=== PATIENT | male | born 1955 | race Caucasian/White ===

== ENCOUNTER 2023-05-06 13:59 | Outpatient (CLI) | payer OTHER, SELFPAY ==
--- NOTE | 2023-05-06 14:13 | XR_ITS ---
WS: [id number] DEXA (DUAL ENERGY X-RAY ABSORPTIOMETRY) Bone mineral density was performed using a expressor software machine. HISTORY: OSTEO FOLLOW UP COMPARISON: None available. Lumbar spine BMD (L1-L4): 1.043 g/cm2 T score: -1.5 Z score: -0.9 Total hip BMD: Left: 0.764 g/cm2. T score: -2.3 Z score: -1.6 Right: 0.749 g/cm2. T score: -2.4 Z score: -1.7 10 year probability of a major osteoporotic fracture is 11.7%. XR/XR DEXA axial skeleton* [id number] IMPRESSION: OSTEOPENIA.
== END 2023-05-06 14:00 | disposition home or self-care (01) ==
PROVIDERS: PCP Family Medicine; Visit Provider Family Medicine
DX: Z13.820 Encounter for screening for osteoporosis (principal); M85.80 Other specified disorders of bone density and structure, unspecified site
CPT/HCPCS: 77080

== ENCOUNTER 2023-06-23 08:31 | Outpatient (CLI) | payer OTHER, SELFPAY ==
--- NOTE | 2023-06-23 08:39 | CT_ITS ---
WS: [id number] CTA ABDOMINAL AORTA WITH RUNOFF TECHNIQUE: Contrast enhanced CTA of the abdominal aorta with bilateral lower extremity runoff. Multip lanar reformatted images were obtained. MIP reformats were also reviewed. CLINICAL INFORMATION: PAD COMPARISON: None. DLP: 963.[address] scans at [facility] use at least one of these dose optimization techniques: automated e xposure control; mA and/or kV adjustment per patient size (includes targeted exams where dose is matc hed to clinical indication); or iterative reconstruction. FINDINGS: Normal caliber distal abdominal aorta. Aortic calcification. Normal variant left-sided IVC. RIGHT renal cyst measuring 4.6 x 4.0 cm partially visualized. Tiny fat-containing umbilical hernia. Enlarged prostate with evidence of bladder outlet obstruction. Recommend correlation PSA. RIGHT: Densely calcified RIGHT common iliac artery which remains patent. Densely calcified internal i liac artery. External iliac artery is patent. Approximately 50% stenosis RIGHT common femoral artery with dense calcification. Severe stenosis at the superficial femoral artery origin. Deep femoral navin ry is patent. Segmental high-grade narrowing superficial femoral artery in the proximal thigh. Superf icial femoral artery is occluded in the mid thigh near the adductor hiatus. Reconstitution of the pop liteal artery with multifocal severe stenosis and segments of occlusion. Popliteal artery reconstitut es above the knee in the popliteal fossa. Popliteal artery remains patent to the trifurcation with th ree-vessel runoff to the ankle. LEFT: LEFT common iliac artery is patent with dense calcification. Internal iliac artery is densely c alcified but patent. External iliac artery is patent. Common femoral artery is patent with approximat isamar 50% stenosis in the groin. SFA is nearly occluded at the origin with high-grade stenosis. Deep fe moral artery is patent. Multifocal moderate to severe stenosis in the proximal SFA. SFA remains paten t to the adductor hiatus. Popliteal artery is patent. Popliteal artery remains patent to the trifurca tion. Three-vessel runoff to the ankle. IMPRESSION: 1. Normal caliber distal abdominal aorta. Aortic calcification. Normal variant left-sided IVC. 2. RIGHT: Severe stenosis at the SFA origin with occlusion of the SFA in the mid thigh just proximal to the adductor hiatus. Flow in the proximal popliteal artery with multifocal occlusion and severe s tenosis proximally. Popliteal artery reconstitutes above the knee and is patent in the popliteal daisy a with three-vessel runoff to the ankle. 3. LEFT: High-grade stenosis LEFT proximal SFA with near occlusion at the origin. Small SFA remains patent to the adductor hiatus. Popliteal artery is patent. Three-vessel runoff to the ankle. 4. Partially visualized RIGHT renal cyst measuring 4.6 x 4.0 cm. 5. Enlarged prostate measuring 4.6 cm. Recommend correlation PSA.
[2023-06-23] MEDS: iohexol 350 mg/mL 500 mL Btl (per mL) IV (08:43)
== END 2023-06-23 08:32 | disposition home or self-care (01) ==
LOC: RAD 08:34
PROVIDERS: PCP Family Medicine; Visit Provider Family Medicine
DX: I70.203 Unspecified atherosclerosis of native arteries of extremities, bilateral legs (principal); N28.1 Cyst of kidney, acquired; N40.0 Benign prostatic hyperplasia without lower urinary tract symptoms
CPT/HCPCS: 73706; Q9967

== ENCOUNTER → 2023-07-05 08:01 | Outpatient (BNVA) | payer OTHER, SELFPAY | PROVIDERS: PCP Family Medicine; Visit Provider Student in an Organized Health Care Education/Training Program | DX: M23.307 Other meniscus derangements, unspecified meniscus, left knee; M17.12 Unilateral primary osteoarthritis, left knee | CPT/HCPCS: 73560; 73565; 99203 ==

== ENCOUNTER 2023-07-28 07:01 | Outpatient (CLI) | payer OTHER, SELFPAY ==
--- NOTE | 2023-07-28 07:15 | MR_ITS ---
WS: [id number] MRI LEFT KNEE NONCONTRAST TECHNIQUE: Axial PD, coronal PD fat sat, coronal PD, sagittal PD, and sagittal PD fat-sat images obta ined. CLINICAL INFORMATION: left knee pain, rule out meniscus tear COMPARISON: None. FINDINGS: Distal quadriceps and patella tendons are intact. Hypertrophic patella. Normal ACL and PCL. Prepatell ar soft tissue edema. Chronic thinning of the medial and lateral meniscus. No acute appearing menisca l tears. Mild chondromalacia patella. Normal medial and lateral collateral ligaments. Normal poplitea l fossa. Moderate to advanced chondromalacia medial greater than lateral joint compartments. Chronic thinning of the meniscus. Subchondral cystic change with edema involving the anterior medial tibial plateau wi th osteochondral lesion measuring 8 mm. IMPRESSION: 1. ACL and PCL are intact. 2. Chronic thinning of the medial and lateral meniscus. No acute appearing meniscal tears. 3. 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 4. Osteochondral lesion involving the anterior medial tibial plateau measuring 8 mm with edema. 5. Hypertrophic patella. Moderate chondromalacia patella. 6. Small joint effusion. Outbridge grading: grade III: partial-thickness cartilage loss with focal ulceration
== END 2023-07-28 07:02 | disposition home or self-care (01) ==
PROVIDERS: PCP Family Medicine; Visit Provider Student in an Organized Health Care Education/Training Program
DX: M25.562 Pain in left knee (principal); M22.42 Chondromalacia patellae, left knee; M89.9 Disorder of bone, unspecified; M23.304 Other meniscus derangements, unspecified medial meniscus, left knee
CPT/HCPCS: 73721

== ENCOUNTER → 2023-09-13 13:26 | Outpatient (BNVA) | payer OTHER, SELFPAY | PROVIDERS: PCP Family Medicine; Referring Provider Family Medicine; Visit Provider Internal Medicine | DX: R07.9 Chest pain, unspecified (principal); R58 Hemorrhage, not elsewhere classified; I73.9 Peripheral vascular disease, unspecified; I25.10 Atherosclerotic heart disease of native coronary artery without angina pectoris; R94.31 Abnormal electrocardiogram [ECG] [EKG] | CPT/HCPCS: 93005; 99204 ==

== ENCOUNTER → 2023-09-15 11:26 | Outpatient (BNVA) | payer OTHER, SELFPAY | PROVIDERS: PCP Family Medicine; Visit Provider Student in an Organized Health Care Education/Training Program | DX: M25.551 Pain in right hip (principal); M16.11 Unilateral primary osteoarthritis, right hip; M87.051 Idiopathic aseptic necrosis of right femur | CPT/HCPCS: 73502; 99214 ==

== ENCOUNTER 2023-09-28 11:25 | Observation (INO) | payer OTHER, SELFPAY ==
[2023-09-28] VITALS (8 sets, daily range): BP systolic 96–149; BP diastolic 61–88; PULSE 63–79; RESP 16–21; TEMP 36.4–37.2; O2SAT 94–99; BMI 23.6
--- NOTE | 2023-09-28 07:30 | XACV_ITS ---
Ht: 178 cm Wt: 75 kg BSA: 1.93 m2 Any Known Allergies: Other Gender: Male : 1955 Exam Type: Invasive Peripheral Vascular Procedure(s): Procedure Description: Peripheral Cath Diagnostic Procedure Procedure Description: Abdominal aortic angiography Procedure Description: Lower extremities' angiography Procedure Description: Peripheral vascular Intervention Procedure Description: PV Balloon Procedure Description: PV Atherectomy Exam Priority: Routine Abdominal Diagnostic Findings Distal abdominal aorta:Patent. Lower Extremity Diagnostic Findings Indication: Severe bilateral lifestyle limiting claudication. Patient refused cilostazol as says has anemia history and is concerned about it. Given significant limitation of his functional capacity, he had CTA showing severe PAD. Plan for peripheral angiogram. Right lower extremity findings: Right common iliac artery has mild 20 to 30% stenosis. Right external iliac artery is patent. Right common femoral artery is patent. Right profunda artery is patent. Right SFA has critical ostial to proximal stenosis which is very heavily calcified. In mid segment, the vessel is totally occluded. Reconstitutes via collaterals in distal SFA/ popliteal artery. Right popliteal artery is patent. Below the knee patient has three-vessel runoff with patent posterior tibial, anterior tibial and peroneal arteries. However below the knee vessels have very slow flow. Left lower extremity findings: Left common iliac artery is patent. Left external iliac artery is patent. Left internal iliac artery is patent. Left common femoral artery has significant calcification. Distally the vessel has 40 to 50% stenosis. Left profunda artery is patent. Left SFA is has diffuse 40 to 50% disease. Left popliteal artery is patent. Below the knee patient has three-vessel runoff with patent posterior tibial, anterior tibial and peroneal arteries. Right Mid-longitudinal Superficial Femoral Artery: 100% stenosis. Lower Extremity Interventional Findings Right Mid-longitudinal Superficial Femoral Artery: 100% stenosis treated with AB [place] 35 CREDIT CONTROL ASSISTANT Catheter [id number] and DCB Lutonix 7.0 X 60mm. Procedure detail: After diagnostic angiography, we switched short 6 German sheath from the left common femoral artery to a 45 cm long sheath and went up and over to the right external iliac artery. Initially we used a Glidewire and seeker support catheter to attempt to cross the totally occluded mid SFA. However it was going into the collateral. We then used Dario-cross support catheter and Glidewire to cross the totally occluded segment and was put in distal vessel.We then switched the glidewire to viper wire through support catheter. We then performed several runs of orbital arthrectomy. This was followed by balloon angioplasty of proximal to distal SFA with [id number] [place] balloon. We then performed balloon angioplasty of ostial to proximal SFA with 7.0x60mm Lutonix drug coated balloon. At this time final angiogram was performed that showed excellent flow in the right SFA. Sheath was switched to short sheath. Patient left the pathology laboratory aides teacher in a stable condition. . Conclusions There is severe right lower extremity disease with total occlusion of mid SFA s/p successful revascularization with orbital arthrectomy and balloon angioplasty. Right Mid-longitudinal Superficial Femoral Artery was treated with two Balloon. Recommendations Dual antiplatelet therapy with aspirin and plavix for atleast 3 months. Outpatient cardiology follow up in 4 weeks. Hemodynamic Data Phase:Rest AO : 153.0 / 68.0 ( 98.0 ) @ 9:38:00 AM 124.0 / 68.0 ( 91.0 ) @ 9:49:00 AM 163.0 / 79.0 ( 111.0 ) @ 10:51:00 AM Access Site Site: Left Femoral artery Sheath Size: 6 Fr Hemost... Method: Suture Hemost... Success: Successful Procedure Details Findings Procedure Consent Obtained. Pre-Procedure Time Out. Identified patient by full name and date of as verbalized by the patient/guarantor. Does the consent match the physician's order: No. Accurate & Complete Informed Consent: Yes. Inpatient/Outpatient History & Physical on Chart: Yes. If H&P is completed, is and addenduem needed: No; If yes, is the addendum complete: N/A. Visualize and Verify Site with Patient/Guarantor: N/A. Relevant Radiology Images available: No. The risks, benefits, and alternatives of sedation and/or procedure were discussed by physician. The patient agrees to continue. Procedure started. Current diagnosis: PAD, Lifestyle limiting claudication. PERRLA. Strong, equal hand accounting lecturer bilaterally. Lungs clear x 5 lobes. IV Site on Arrival: 20 gauge in the right anticubital. IV Fluids: 0.9% NaCl at 75mlhr. 0 mL infused prior to pathology laboratory aides teacher. Pre Procedural Pulses: bilateral radial was 3+. Pre Procedural Pulses: bilateral posterior tibial was Doppled. Pre Procedural Pulses: right dorsalis pedis was Doppled. Pre Procedural Pulses: left dorsalis pedis was 3+. Oxygen started at 2liters/min via nasal canula. bilateral groins was prepped with chloroprep then draped in the usual sterile fashion. Baseline sample Acquired. HR: 71 BPM. Physician notified. Physician arrived. Physician scrubbed in. Immediate Pre-Procedure Time Out. Correct Patient: Yes; Correct Procedure: Yes; Correct Site: Yes; Correct Patient Position: Yes; Correct Supplies: Yes; Dried Flammable Prep: Yes; Blood Products Available: No;. Admit Source: Out Patient. Lidocaine 1% infiltrated to the left groin. Arterial access obtained with micropuncture set. 5Fr UF catheter in over wire. Abdominal Aortogram performed in AP @ 10 mL/second for a total of 30 mL. Glidewire in through UF catheter. Uf catheter repositioned. Glidewire out. Right common iliac selected and arteriogram performed. DSA imaging performed below the right knee to better visualize the distal vessels. Glidewire in through UF catheter. UF catheter out over glidewire. 6fr short sheath exchanged for 6fr 45cm flexor sheath over the glidewire. Seeker catheter inserted over the glidewire. Side port of sheath attached to Normal Saline flush at KVO to maintain patency. Mutiple attempts made to advance glidewire across mid SFA. Unable to cross mid SFA with glidewire. Glidewire out. 300cm command wire in through seeker catheter, seated in SFA. Seeker catheter out over wire. Dario- cross catheter in over command wire. Command wire out. Glidewire advanced through Dario-cross catheter. Multiple attempts to advance glidewire. Unable to cross. Glidewire out. Hand injection through Dario-cross catheter. Dario-cross catheter advanced over glidewire to popliteal. Glidewire out. Hand injection through Dario-cross catheter. DSA imaging performed below the knee to better visualize distal vessels. 0.14 peripheral viper guidewire in through catheter. Dario-cross catheter out over viperwire. 1.5mm orbital atherectomy device advanced over viperwire. atherectomy performed to proximal right SFA. atherectomy device repositioned, atherectomy performed to right mid SFA. atherectomy performed to right mid to distal SFA. Atherectomy device out over viperwire. seeker catheter in over viperwire. Viperwire out. Glidewire in through seeker catheter. Seeker catheter out over glidewire. Balloon in over glidewire, advanced to distal common femoral and proximal SFA. Inflation number : 1 A AB [place] 35 CREDIT CONTROL ASSISTANT Catheter [id number] was prepped and advanced across the Superficial Femoral, Right , then inflated to 6 RODRIGUEZ for 1:29 seconds. Balloon repositioned to mid to distal SFA. Inflation number: 2 The AB [place] 35 CREDIT CONTROL ASSISTANT Catheter [id number] was reinflated across the Superficial Femoral, Right, to 0 RODRIGUEZ for 1:27 seconds. Balloon out over glidwire. Right common femoral selected and arteriogram performed, checking results. Balloon inserted over the wire to the proximal superficial femoral. Inflation number : 3 A DCB Lutonix 7.0 X 60mm was prepped and advanced across the Superficial Femoral, Right , then inflated to 5 RODRIGUEZ for 1:30 seconds. Inflation number: 4 The DCB Lutonix 7.0 X 60mm was reinflated across the Superficial Femoral, Right, to 6 RODRIGUEZ for 0:32 seconds. Balloon out over wire. Right common femoral selected and arteriogram performed, checking results. 6fr 45cm flexor sheath exchanged for 6fr short sheath over glidewire. Glidewire out. Sheath injected in Left common femoral artery and runoff performed. ACT drawn. Results 282 seconds. Therapeutic limits - pre-heparin administration 90-150 seconds and monitoring heparin during a vascular procedure >250 seconds. A Suture was successful obtaining hemostatsis at the Left Femoral artery insertion site. Sheath(s) sutured into position with 2-0 silk and sterile 4x4's and Op-site applied over the site. No oozing or signs and symptoms of hematoma noted. Arterial sheath flushed and connected to tranducer and pressure bag with heparinized saline. Post Procedure: Pulses reassessed and unchanged. PERRLA. Strong, equal hand accounting lecturer bilaterally. No VTE prophylaxis required. Medication's Wasted: Nitro = 49.7 mg. Medication's Wasted: Other = Fentanyl 50mcg, Versed 1 mg. Medication's Wasted: Heparin = 2000 units. Total IV fluids: 110 mL. Post-op diagnosis: Severe right lower extremity PAD . Successful revascularization status post atherectomy and balloon angioplasty. Complications: None. Estimated blood loss: 5mL-10mL. Responsiveness - Normal response to verbal stimuli; alert and oriented, PERRLA. Airway - Unaffected, no intervention required; spontaneous ventilation. Circulation: W/N/L, pulses unchanged. Nausea/Vomiting: No. Procedure completed. Patient transferred by bed to 1st floor. Vital chart was stopped. Procedure Medications Start: 9:29 AM Stop: 9:29 AM Medication: Versed Amount: 1 mg Route: I.V. Start: 9:30 AM Stop: 9:30 AM Medication: Fentanyl Amount: 50 mcg Route: I.V. Start: 9:36 AM Stop: 9:36 AM Medication: Versed Amount: 1 mg Route: I.V. Start: 9:44 AM Stop: 9:44 AM Medication: Heparin Amount: 5000 units Route: I.V. Start: 9:45 AM Stop: 9:45 AM Medication: Fentanyl Amount: 25 mcg Route: I.V. Start: 9:56 AM Stop: 9:56 AM Medication: Fentanyl Amount: 25 mcg Route: I.V. Start: 10:05 AM Stop: 10:05 AM Medication: Versed 1 mg and Fentanyl 25 mcg Route: I.V. Start: 10:18 AM Stop: 10:18 AM Medication: Heparin Amount: 1000 units Route: I.V. Start: 10:29 AM Stop: 10:29 AM Medication: Fentanyl Amount: 25 mcg Route: I.V. Start: 10:35 AM Stop: 10:35 AM Medication: Nitrogylcerin Amount: 300 mcg Route: I.A. Start: 10:55 AM Stop: 10:55 AM Medication: Plavix Amount: 600 mg Route: P.O. I, the attending physician, have reviewed and verified all procedure medications. Yes, all medications given per verbal order History/Risk Factors Hypertension: No Dyslipidemia: Yes Peripheral Arterial Disease (PAD): Yes Myocardial Infarction ([place]): Yes Obesity: No Prior Interventions PCI: Yes CABG: No Valve Surgery: No Report Signatures Finalized by Suraj Partida MD on 10/03/2023 12:50 PM
[2023-09-28] MEDS: aspirin 325 mg Tablet PO (07:40)
[2023-09-28] MEDS: diphenhydrAMINE 50 mg Capsule PO (07:40)
[2023-09-28 07:53] LABS: Basophils % 0.5 %; Eosinophils # 0.2 10^3/uL (0.0-0.8); Eosinophils % 2.2 %; Lymphocytes # 1.8 10^3/uL (0.8-4.8); Lymphocytes % 24.7 %; Mean Corpuscular HGB Conc 33.8 g/dL (30-55); Mean Corpuscular Hemoglobin 32.3 pg (27-33); Mean Corpuscular Volume 95.8 fl (82-101); Mean Platelet Volume 8.8 fL (7.4-10.4); Monocytes # 0.6 10^3/uL (0.2-0.9); Monocytes % 8.6 %; Neutrophils # 4.68 10^3/uL (1.8-7.7); Neutrophils % 63.7 %; Nucleated Red Blood Cells % 0 %; Platelet Count 263 10^3/cmm (157-399); Red Blood Count 5.01 10^6/uL (3.85-5.65); Red Cell Distribution Width 12.9 % (12.1-15.1); White Blood Count 7.34 10^3/uL (3.29-11.43)
[2023-09-28 08:11] LABS: Blood Urea Nitrogen 18 mg/dL (8-23); Calcium 9.7 mg/dL (8.5-10.5); Carbon Dioxide 29 mmol/L (22-29); Chloride 102 mmol/L (98-107); Glomerular Filtration Rate 95.8 mL/min (90-130); Glucose 92 mg/dL (65-115); Osmolality Calculated 290 mOsm/kg (285-295); Sodium 139 mmol/L (136-145)
--- NOTE | 2023-09-28 09:26 | W.PM.OPSUD ---
Surgery/Procedure H&P Update DATE OF PROCEDURE: September 28, 2023 DATE H&P PERFORMED: 09/13/23 H&P UPDATE INFORMATION: I have reviewed H&P completed within last 30 days, I have examined patient prior to procedure and No changes to prior documentation PREOP DIAGNOSIS: Severe bilateral lifestyle limiting claudication PRIMARY INDICATION FOR PROCEDURE: Severe bilateral lifestyle limiting claudication PLANNED PROCEDURE: Operation Date: 09/28/23 08:30 Proposed Procedures p Periph Angiogram 15936,I73.9(Not Applicable) - Suraj Partida M.D Possible percutaneous peripheral intervention PATIENT REASSESSED PRIOR TO SEDATION, WITH NO CHANGE NOTED: Yes PHYSICAL EXAM: alert, oriented x 3, clear to auscultation bilaterally and regular rate & rhythm AIRWAY EVAL/ANESTHESIA PLAN: normal airway, ASA III, Local Anesthesia, Risks, benefits & alternatives of sedation and/or procedure discussed and Patient agrees to continue as planned ADDITIONAL INFORMATION: Moderate sedation
--- NOTE | 2023-09-28 12:30 | PC.NURSE ---
Dr Partida at bedside due to report of hematoma applied pressure to left groin and per verbal order from dr partida to hold pressure 10 mins.
--- NOTE | 2023-09-28 13:10 | PC.NURSE ---
patient started to bleed again on right groin upon using his urinal. hematoma came came and another pressure held for 15 mins. pt denies any pain on back or left groin. reported only of soreness upon palpation around the sheath area.
[2023-09-28 13:48] LABS: Partial Thromboplastin Time 91.2 SECONDS (23.9-36.7)
[2023-09-28 15:36] LABS: Partial Thromboplastin Time 32.1 SECONDS (23.9-36.7)
[2023-09-28] MEDS: amlodipine 5 mg Tablet PO (18:49)
[2023-09-28] MEDS: temazepam 15 mg Capsule PO (20:10)
[2023-09-28] MEDS: alum-mag-hydroxide-sime 30 mL UDC PO (22:35)
[2023-09-29 03:10] VITALS: BP 120/76; PULSE 78; RESP 24; TEMP 36.9; O2SAT 94
[2023-09-29 06:13] LABS: Basophils % 0.4 %; Eosinophils # 0.2 10^3/uL (0.0-0.8); Eosinophils % 1.4 %; Hematocrit 48.4 % (37-53); Lymphocytes # 1.7 10^3/uL (0.8-4.8); Lymphocytes % 14.9 %; Mean Corpuscular HGB Conc 33.1 g/dL (30-55); Mean Corpuscular Hemoglobin 32.1 pg (27-33); Mean Platelet Volume 9.1 fL (7.4-10.4); Monocytes % 8.8 %; Neutrophils # 8.39 10^3/uL (1.8-7.7); Neutrophils % 74.2 %; Nucleated Red Blood Cells % 0 %; Platelet Count 253 10^3/cmm (157-399); Red Blood Count 4.99 10^6/uL (3.85-5.65); White Blood Count 11.31 10^3/uL (3.29-11.43)
[2023-09-29 06:36] LABS: Anion Gap 16.2 (5-19); Blood Urea Nitrogen 13 mg/dL (8-23); Calcium 9.4 mg/dL (8.5-10.5); Carbon Dioxide 24 mmol/L (22-29); Chloride 105 mmol/L (98-107); Glomerular Filtration Rate 95.6 mL/min (90-130); Glucose 100 mg/dL (65-115); Osmolality Calculated 292 mOsm/kg (285-295); Potassium 4.2 mmol/L (3.5-5.1); Sodium 141 mmol/L (136-145)
--- NOTE | 2023-09-29 07:14 | P.DS_ITS ---
Discharge Providers Date of Admission: 09/28/23 11:25 Date of Discharge: September 29, 2023 Attending Provider at Admission: Suraj Partida M.D Attending Provider at Discharge: Suraj Partida M.D Primary Care Provider: Corinne Sweet MD Reason for Visit Reason for Visit: Peripheral angiogram with peripheral intervention Brief History: 68-year-old man with past medical histor y of CAD who has been having lifestyle limiting claudication especially on right lower extremity here for peripheral angiogram with possible intervention. Hospital Course Hospital Course Peripheral angiogram demonstrated severe ostial to proximal SFA stenosis and total occlusion of mid SFA. He underwent successful revascularization with orbital arthrectomy and balloon angioplasty. Patient was observed overnight and stayed stable. He was discharged home on dual antiplatelet therapy Physical Exam Narrative: GENERAL: Patient is alert, awake and oriented x3. [] NECK: No jugular vein distension. [] HEENT: No cyanosis. No icterus. No pallor. [] HEART: Regular S1 and S2. No murmur, rub or gallop. [] LUNGS: Clear to auscultate bilaterally. [] CENTRAL NERVOUS SYSTEM: Grossly nonfocal. [] EXTREMITIES: Lower extremities with no edema bilaterally. Discharge Data Studies Completed and Pending Pending at discharge Category Date Time Status APPLICATIONS ANALYST request for service Routine Exams 09/28/23 07:30 Taken Laboratory Results WBC 11.31 10^3/uL (3.29-11.43) 09/29/23 05:30 RBC 4.99 10^6/uL (3.85-5.65) 09/29/23 05:30 Hgb 16.00 g/dL (11.27-16.99) 09/29/23 05:30 Hct 48.4 % (37-53) 09/29/23 05:30 MCV 97.0 fl (82-101) 09/29/23 05:30 MCH 32.1 pg (27-33) 09/29/23 05:30 MCHC 33.1 g/dL (30-55) 09/29/23 05:30 RDW 13.0 % (12.1-15.1) 09/29/23 05:30 Plt Count 253 10^3/cmm (157-399) 09/29/23 05:30 MPV 9.1 fL (7.4-10.4) 09/29/23 05:30 Neut % (Auto) 74.2 % 09/29/23 05:30 Lymph % (Auto) 14.9 % 09/29/23 05:30 [place]ven % (Auto) 8.8 % 09/29/23 05:30 Eos % (Auto) 1.4 % 09/29/23 05:30 Baso % (Auto) 0.4 % 09/29/23 05:30 Neut # (Auto) 8.39 10^3/uL (1.8-7.7) H 09/29/23 05:30 Lymph # (Auto) 1.7 10^3/uL (0.8-4.8) 09/29/23 05:30 Craven # (Auto) 1.0 10^3/uL (0.2-0.9) H 09/29/23 05:30 Eos # (Auto) 0.2 10^3/uL (0.0-0.8) 09/29/23 05:30 Baso # (Auto) 0.0 10^3/uL (0.0-0.1) 09/29/23 05:30 Nucleated RBC % (auto) 0 % 09/29/23 05:30 Nucleated RBCs # 0.0 /100WBC 09/29/23 05:30 APTT 32.1 SECONDS (23.9-36.7) D 09/28/23 15:11 Sodium 141 mmol/L (136-145) 09/29/23 05:30 Potassium 4.2 mmol/L (3.5-5.1) 09/29/23 05:30 Chloride 105 mmol/L (98-107) 09/29/23 05:30 Carbon Dioxide 24 mmol/L (22-29) 09/29/23 05:30 Anion Gap 16.2 (5-19) 09/29/23 05:30 BUN 13 mg/dL (8-23) 09/29/23 05:30 Creatinine 0.8 mg/dL (0.7-1.2) 09/29/23 05:30 GFR Calculation 95.6 mL/min (90-130) 09/29/23 05:30 Glucose 100 mg/dL (65-115) 09/29/23 05:30 Calculated Osmolality 292 mOsm/kg (285-295) 09/29/23 05:30 Calcium 9.4 mg/dL (8.5-10.5) 09/29/23 05:30 Vitals Last Vital Signs Temp 98.4 F 09/29/23 03:10 Pulse 78 09/29/23 03:10 Resp 24 H 09/29/23 03:10 BP 120/76 09/29/23 03:10 Pulse Ox 94 09/29/23 03:10 O2 Del Method Room Air 09/29/23 03:10 Discharge Plan Discharge Patient Disposition: Home Condition: Stable Prescriptions: New aspirin 81 mg tablet,delayed release (DR/EC) 81 mg PO DAILY Qty: 90 0RF clopidogrel 75 mg tablet 75 mg PO DAILY Qty: 90 0RF Continued rabeprazole 20 mg tablet,delayed release (DR/EC) 20 mg PO DAILY mirtazapine 30 mg tablet 30 mg PO DAILY clonidine HCl 0.3 mg tablet 0.3 mg PO BID coenzyme Q10 200 mg capsule 200 mg PO DAILY taurine 1,000 mg capsule 2 g PO DAILY magnesium L-threonate 48 mg magnesium (667 mg) capsule 2,000 mg PO DAILY cholecalciferol (vitamin D3) 250 mcg (10,000 unit) capsule 500 mcg PO DAILY vitamin K2 100 mcg capsule 200 mcg PO DAILY Vitamin B Complex 1 tab PO DAILY ascorbic acid (vitamin C) 1,000 mg capsule 1 g PO DAILY Held Nattokinase 50 mg capsule 50 mg PO DAILY Hold Instructions: Resume on 12/28/23. Discharge Orders: Discharge Order (Routine); Ordered 09/29/23 Ordered By: Suraj Partida Referrals: Suraj Partida M.D [Physician] - (Your Dr. Partida follow up appointment will be scheduled during your Daisy Romero appointment. Thank you.) Daisy Romero FNP [Nurse Practitioner] - 10/06/23 10:30 am Discharge Diet: Cardiac Discharge Activity: Increase activity as tolerated Patient Instructions: Aspirin (By mouth) (Meir Extra Strength, Meir Aspirin [facility],..., Clopidogrel (By mouth) (Plavix), Peripheral Vascular Stent Placement (DC), Peripheral Vascular Angioplasty (DC), Opioid Safety, Post Angiogram Home Care Instructions Discharge Attestations Time Spent in Discharge Care*: less than 30 min Quality Metrics Clinical Quality Measures [ No reported AMI, CVA or VTE this stay] Coding Level of Care Code Acute Code for Chg Fwd
[2023-09-29 07:55] VITALS: BP 120/76; PULSE 78; RESP 24; TEMP 36.9; O2SAT 94
== END 2023-09-29 08:20 | disposition home or self-care (01) ==
LOC: CSU 11:26
PROVIDERS: Admitting Provider Internal Medicine; PCP Family Medicine; Visit Provider Internal Medicine
DX: I70.201 Unspecified atherosclerosis of native arteries of extremities, right leg (principal); I25.10 Atherosclerotic heart disease of native coronary artery without angina pectoris; E78.5 Hyperlipidemia, unspecified; I25.2 Old myocardial infarction; Z87.891 Personal history of nicotine dependence
CPT/HCPCS: 36415; 37224; 37225; 75625; 75716; 80048; 85025; 85347; 85730; 96361; 96365; 99152; 99153; C1724; C1725; C1769; C1887; C1894; C2623; G0378; J1644; J2250; J3010; J3490; J7030; Q0163; Q9967

== ENCOUNTER → 2023-10-06 10:11 | Outpatient (BNVA) | payer OTHER, SELFPAY | PROVIDERS: PCP Family Medicine; Visit Provider Nurse Practitioner Family | DX: I73.9 Peripheral vascular disease, unspecified (principal); Z87.891 Personal history of nicotine dependence | CPT/HCPCS: 80048; 85610; 99214 ==

== ENCOUNTER → 2023-12-01 08:29 | Outpatient (BNVA) | payer OTHER, SELFPAY | PROVIDERS: PCP Family Medicine; Visit Provider Student in an Organized Health Care Education/Training Program | DX: M70.61 Trochanteric bursitis, right hip (principal); M16.11 Unilateral primary osteoarthritis, right hip; M87.051 Idiopathic aseptic necrosis of right femur | CPT/HCPCS: 20610; 99214; J3301; J3490 ==

== ENCOUNTER → 2023-12-05 15:27 | Outpatient (BNVA) | payer OTHER, SELFPAY | PROVIDERS: PCP Family Medicine; Visit Provider Internal Medicine | DX: I73.9 Peripheral vascular disease, unspecified (principal); I25.10 Atherosclerotic heart disease of native coronary artery without angina pectoris; Z87.891 Personal history of nicotine dependence | CPT/HCPCS: 99214 ==

== ENCOUNTER → 2024-03-01 08:42 | Outpatient (BNVA) | payer OTHER, SELFPAY | PROVIDERS: PCP Family Medicine; Visit Provider Student in an Organized Health Care Education/Training Program | DX: M16.11 Unilateral primary osteoarthritis, right hip; M70.61 Trochanteric bursitis, right hip | CPT/HCPCS: 99213 ==

== ENCOUNTER → 2024-05-18 08:45 | Outpatient (BNVA) | payer OTHER, SELFPAY | PROVIDERS: PCP Family Medicine; Visit Provider Student in an Organized Health Care Education/Training Program | DX: M87.051 Idiopathic aseptic necrosis of right femur (principal) | CPT/HCPCS: 20610; 77002; J3301 ==

== ENCOUNTER → 2024-08-23 10:14 | Outpatient (BNVA) | payer OTHER, SELFPAY | PROVIDERS: PCP Family Medicine; Visit Provider Student in an Organized Health Care Education/Training Program | DX: M16.11 Unilateral primary osteoarthritis, right hip; M70.61 Trochanteric bursitis, right hip | CPT/HCPCS: 99213 ==

== ENCOUNTER → 2024-09-10 13:57 | Outpatient (BNVA) | payer OTHER, SELFPAY | PROVIDERS: PCP Family Medicine; Visit Provider Internal Medicine | DX: I73.9 Peripheral vascular disease, unspecified (principal); I25.10 Atherosclerotic heart disease of native coronary artery without angina pectoris; Z87.891 Personal history of nicotine dependence | CPT/HCPCS: 99214 ==

== ENCOUNTER → 2024-09-28 09:35 | Outpatient (BNVA) | payer OTHER, SELFPAY | PROVIDERS: PCP Family Medicine; Visit Provider Student in an Organized Health Care Education/Training Program | DX: M70.61 Trochanteric bursitis, right hip (principal); M87.051 Idiopathic aseptic necrosis of right femur; M16.11 Unilateral primary osteoarthritis, right hip | CPT/HCPCS: 20610; 77002; J3301 ==

== ENCOUNTER 2024-10-05 09:59 | Outpatient (CLI) | payer OTHER, SELFPAY ==
[2024-10-05 10:52] LABS: Alanine Aminotransferase 20 U/L (0-41); Albumin Level 3.7 g/dL (3.5-5.2); Alkaline Phosphatase 56 U/L (40-130); Aspartate Amino Transferase 18 U/L (0-40); Globulin 2.6 g/dL (1.3-4.6); Total Bilirubin 0.2 mg/dL (0.15-1.2); Total Protein 6.3 g/dL (6.6-8.7)
== END 2024-10-05 10:00 | disposition home or self-care (01) ==
LOC: LAB 10:03
PROVIDERS: PCP Family Medicine; Visit Provider Nurse Practitioner Family
DX: R53.82 Chronic fatigue, unspecified (principal); F32.9 Major depressive disorder, single episode, unspecified
CPT/HCPCS: 36415; 80076

== ENCOUNTER 2024-10-09 07:30 | Outpatient (CLI) | payer OTHER, SELFPAY ==
--- NOTE | 2024-10-09 07:45 | USCV_ITS ---
Jean Pierre Turner Age: 69 Gender: M : 1955 Exam Date: 10/09/2024 07:46 Ordering Phys: Suraj Partida M.D ([email or web address]) Technologist: SUSAN Exam Location: [facility] – [place] Indication: CHEST PAIN/SHORTNESS OF BREATH BP: 117 / 72 HR: 75 Rhythm: Sinus Technical Quality: Adequate MEASUREMENTS (Male / Female) Normal Values 2D ECHO LV Diastolic Diameter PLAX 4.9 cm 4.2 - 5.9 / 3.9 - 5.3 cm IVS Diastolic Thickness 1.1 cm 0.6 - 1.0 / 0.6 - 0.9 cm IVS Systolic Thickness 1.2 cm LVPW Diastolic Thickness 1.7 cm 0.6 - 1.0 / 0.6 - 0.9 cm LVPW Systolic Thickness 2.3 cm LVOT Diameter 2.0 cm LV Ejection Fraction 2D Teich 34.2 % LV Ejection Fraction MOD 4C 51.7 % LV Ejection Fraction MOD 2C 49.3 % LV Ejection Fraction 2C AL 47.6 % LA Diameter 3.7 cm RA Systolic Volume 4C AL 25.0 ml RA Systolic Volume 4C MOD 23.9 ml LA Sys Volume AL 37.5 cm cubed LA Sys Volume Index AL 19.8 cm cubed/m squared Aorta at Sinotubular Diameter 3.0 cm IVC Diameter 1.2 cm M-MODE LA Ao Ratio MM 1.0 AV Cusp Separation MM 1.6 cm DOPPLER AV Peak Velocity 114.0 cm/s LVOT Peak Velocity 98.0 cm/s AV Area Cont Eq vti 3.0 cm squared AV Area Cont Eq pk 2.8 cm squared MV Peak Velocity 119.0 cm/s MV Area PHT 3.8 cm squared Mitral E to A Ratio 0.7 TR Peak Velocity 131.0 cm/s TR Peak Gradient 6.9 mmHg TR Mean Velocity 109.0 cm/s TR Mean Gradient 5.2 mmHg TR Velocity Time Integral 38.6 cm TV Peak E Velocity 47.0 cm/s PV Peak Velocity 104.0 cm/s RV Ejection Time 0.3 s FINDINGS Left Ventricle Left ventricle is normal in size. LV systolic function is normal with EF of 50 to 55%. No regional wall motion abnormalities. Grade 1 diastolic dysfunction. Right Ventricle Normal in size and function Right Atrium Normal in size Left Atrium Normal in size Mitral Valve Structurally normal mitral valve. Mild mitral regurgitation. Aortic Valve Structurally normal aortic valve. No significant stenosis or regurgitation. Tricuspid Valve Insufficient TR jet to calculate RVSP. Pulmonic Valve Not well visualized Pericardium Normal Aorta Normal in size IVC Appears to be normal CONCLUSIONS LV systolic function is normal with EF of 50-55% Grade 1 diastolic dysfunction Mild mitral regurgitation No comparison studies are available. Suraj Partida MD (Electronically Signed) Final Date: 12 October 2024 11:48 S
== END 2024-10-09 07:31 | disposition home or self-care (01) ==
LOC: RAD 07:30
PROVIDERS: PCP Family Medicine; Visit Provider Internal Medicine
DX: I50.30 Unspecified diastolic (congestive) heart failure (principal); R07.9 Chest pain, unspecified; R06.02 Shortness of breath
CPT/HCPCS: 93306

== ENCOUNTER 2024-12-12 09:47 | Outpatient (CLI) | payer OTHER, SELFPAY ==
[2024-12-12 10:50] LABS: Hematocrit 42.6 % (37-53)
[2024-12-13 08:10] LABS: Albumin 4.2 g/dL (3.6-5.1); Testosterone Total Males IA 1108 ng/dL (250-827)
[2024-12-13 09:19] LABS: Sex Hormone Binding Globulin 68 nmol/L (22-77); Testosterone Bioavailable 173.7 ng/dL (15.0-150.0); Testosterone Free 90.2 pg/mL (6.0-73.0)
== END 2024-12-12 09:48 | disposition home or self-care (01) ==
LOC: LAB 10:10
PROVIDERS: PCP Family Medicine; Visit Provider Urology
DX: R97.20 Elevated prostate specific antigen [PSA] (principal); E29.1 Testicular hypofunction
CPT/HCPCS: 36415; 82040; 84153; 84270; 84403; 85014

== ENCOUNTER → 2025-02-15 07:59 | Outpatient (BNVA) | payer OTHER, SELFPAY | PROVIDERS: PCP Family Medicine; Visit Provider Student in an Organized Health Care Education/Training Program | DX: M87.051 Idiopathic aseptic necrosis of right femur (principal); M16.11 Unilateral primary osteoarthritis, right hip | CPT/HCPCS: 20610; 77002; J3301; J9999 ==

== ENCOUNTER → 2025-04-11 08:30 | Outpatient (BNVA) | payer OTHER, SELFPAY | PROVIDERS: PCP Family Medicine; Visit Provider Student in an Organized Health Care Education/Training Program | DX: K22.70 Barrett's esophagus without dysplasia (principal) | CPT/HCPCS: 99204 ==

== ENCOUNTER 2025-05-07 06:30 | Day surgery (SDC) | payer OTHER, SELFPAY ==
[2025-05-07 06:48] VITALS: BP 110/68; PULSE 77; RESP 18; TEMP 36.4; O2SAT 97; BMI 22.9
--- NOTE | 2025-05-07 07:00 | W.PM.OPSUD ---
Surgery/Procedure H&P Update DATE OF PROCEDURE: May 07, 2025 DATE H&P PERFORMED: 04/11/25 H&P UPDATE INFORMATION: I have reviewed H&P completed within last 30 days, I have examined patient prior to procedure and No changes to prior documentation PLANNED PROCEDURE: Operation Date: 05/07/25 07:30 Proposed Procedures p EGD with Biopsy 52056 K22.70(Not Applicable) - Melvin Monae MD
--- NOTE | 2025-05-07 07:26 | ANES.PREANE2 ---
Pre-Anesthetic Assessment Height/Weight: Height 1.78 m Weight 72.575 kg Temp Pulse Resp BP Pulse Ox O2 Del Method 97.5 F L 77 18 110/68 97 Room Air 05/07/25 06:48 05/07/25 06:48 05/07/25 06:48 05/07/25 06:48 05/07/25 06:48 05/07/25 06:48 Preop Diagnosis: Kenney's esophagitis Operation Date: 05/07/25 07:30 Proposed Procedures p EGD with Biopsy [id number] K22.70(Not Applicable) - Melvin Monae MD Was Beta Will taken within 24 hours: N/A Was Clonidine taken within 24 hours: N/A Last intake: Intake Last Liquid Date 05/06/25 Last Liquid Time 19:00 Last Solid Date 05/06/25 Last Solid Time 19:00 Social No alcohol and No tobacco Exam alert, oriented x 3, clear to auscultation bilaterally and regular rate & rhythm Airway Submandibular: within normal limits Cervical ROM: within normal limits Mallampati: Class II Comments: Comments: Several missing none loose History/ROS No significant history except as noted and No significant complaints Pulmonary None reported CV/HEM Coronary Artery Disease and Peripheral Vascular Disease None reported Hepatic None reported GI Gastroesophageal Reflux Disease Metabolic None reported Musc/skel None reported Neuropsych None reported Anesthetic Plan ASA status: 3 Anesthesia: Anesthesia Evaluation and MAC Risk of > 500 ml blood loss (7ml/kg in children): No Medications/Allergies Home Medications ?Medication ?Instructions ?Recorded ?Confirmed ?Last Taken ?Type rabeprazole 20 mg tablet,delayed 20 mg PO DAILY 07/05/23 05/02/25 05/06/25 History release Vitamin B Complex 1 tab PO DAILY 09/13/23 05/02/25 05/06/25 History coenzyme Q10 200 mg capsule 200 mg PO DAILY 09/13/23 05/02/25 05/06/25 History magnesium L-threonate 48 mg 2,000 mg PO DAILY 09/13/23 05/02/25 05/06/25 History magnesium (667 mg) capsule taurine 1,000 mg capsule 2 g PO DAILY 09/13/23 05/02/25 05/06/25 History vitamin K2 100 mcg capsule 200 mcg PO DAILY 09/13/23 05/02/25 05/06/25 History aspirin 81 mg tablet,delayed 81 mg PO DAILY #90 tabs 09/29/23 05/02/25 04/28/25 Rx release cholecalciferol (vitamin D3) 250 2,000 unit PO DAILY 10/06/23 05/02/25 05/06/25 History mcg (10,000 unit) capsule soybean, fermented 50 mg capsule See Rx Instructions PO .COMPLEX 10/06/23 05/02/25 05/06/25 History (Nattokinase) clonidine HCl 0.3 mg tablet 0.3 mg PO DAILY 12/05/23 05/02/25 05/06/25 History mirtazapine 30 mg tablet 60 mg PO BEDTIME 09/10/24 05/02/25 05/06/25 History tamsulosin 0.4 mg capsule (Flomax) 0.4 mg PO BID 09/10/24 05/02/25 05/06/25 History cilostazol 50 mg tablet 50 mg PO BID #180 tabs 10/29/24 05/02/25 04/28/25 Rx bupropion HCl 150 mg tablet,12 hr 150 mg PO BID 05/02/25 05/02/25 05/06/25 History sustained-release Allergies Allergy/AdvReac Type Severity Reaction Status Date / Time amoxicillin Allergy Intermediate Unknown Verified 04/11/25 08:31 NSAIDS (Non-Steroidal Allergy Intermediate ADR-Heartbu Verified 04/11/25 08:31 Anti-Inflamma rn Psygpmo-HCR-AdL Reductase Allergy Intermediate ADR-Heartbu Verified 04/11/25 08:31 Inhibitor rn Current Medications Generic Name Dose Route Start Last Admin Trade Name Freq PRN Reason Stop Dose Admin Sodium Chloride 1,000 mls @ 15 mls/hr 05/07/25 06:35 05/07/25 06:59 Sodium Chloride 0.9% IV 05/08/25 06:34 15 mls/hr .Q24H PRN Administration COLONOSCOPY FLUIDS PFSH Anesthesia Social History Smoking and tobacco/nicotine status: former use of tobacco/nicotine (quit about 8 years ago) Alcohol intake: current Alcohol intake frequency: few times a month Data Anesthesia Cardiac Studies: Echocardiogram 10/09/24
[2025-05-07 07:56] VITALS: BP 137/81; PULSE 70; RESP 16; TEMP 36.4; O2SAT 96
--- NOTE | 2025-05-07 07:59 | ANE.PACU2 ---
Inpatient post-anesthesia follow up: Airway intact: Yes Vital signs: Temperature 97.5 F Pulse Rate 78 Respiratory Rate 16 Blood Pressure 146/95 Pulse Oximetry 97 Oxygen Delivery Me thod Room Air Oxygen Flow Rate Fraction of Inspir ed Oxygen Hydration adequate: Yes Nausea and vomiting: No Pain level: 1 Mental status: Baseline
[2025-05-07 08:13] VITALS: BP 146/95; PULSE 78; RESP 16; O2SAT 97
== END 2025-05-07 08:29 | disposition home or self-care (01) ==
PROVIDERS: PCP Family Medicine; Visit Provider Student in an Organized Health Care Education/Training Program
PROC: 0DJ08ZZ Inspection of Upper Intestinal Tract, Via Natural or Artificial Opening Endoscopic (ICD-10-PCS; principal; 2025-05-07 07:30)
DX: K22.70 Barrett's esophagus without dysplasia (principal); K21.00 Gastro-esophageal reflux disease with esophagitis, without bleeding; I25.10 Atherosclerotic heart disease of native coronary artery without angina pectoris; I73.9 Peripheral vascular disease, unspecified; Z79.899 Other long term (current) drug therapy; Z79.82 Long term (current) use of aspirin; Z88.0 Allergy status to penicillin; Z88.8 Allergy status to other drugs, medicaments and biological substances; Z87.891 Personal history of nicotine dependence
CPT/HCPCS: 43239; 88305; J2704; J7030; J9999

== ENCOUNTER → 2025-05-17 10:15 | Outpatient (BNVA) | payer OTHER, SELFPAY | PROVIDERS: PCP Family Medicine; Visit Provider Student in an Organized Health Care Education/Training Program | DX: M16.11 Unilateral primary osteoarthritis, right hip (principal) | CPT/HCPCS: 20610; 77002 ==

== ENCOUNTER → 2025-05-20 08:15 | Outpatient (BNVA) | payer OTHER, SELFPAY | PROVIDERS: PCP Family Medicine; Visit Provider Student in an Organized Health Care Education/Training Program | DX: Z09 Encounter for follow-up examination after completed treatment for conditions other than malignant neoplasm (principal) | CPT/HCPCS: 99213; J3301; J9999 ==

== ENCOUNTER 2025-06-05 08:35 | Outpatient (CLI) | payer OTHER, SELFPAY ==
[2025-06-05 09:49] LABS: Prostate Specific Antigen 15.520 ng/mL (0-4)
== END 2025-06-05 08:36 | disposition home or self-care (01) ==
LOC: LAB 08:38
PROVIDERS: PCP Family Medicine; Visit Provider Urology
DX: R97.20 Elevated prostate specific antigen [PSA] (principal)
CPT/HCPCS: 36415; 84153

== ENCOUNTER → 2025-06-17 13:51 | Outpatient (BNVA) | payer OTHER, SELFPAY | PROVIDERS: PCP Family Medicine; Visit Provider Internal Medicine | DX: I73.9 Peripheral vascular disease, unspecified (principal); I25.10 Atherosclerotic heart disease of native coronary artery without angina pectoris; Z87.891 Personal history of nicotine dependence | CPT/HCPCS: 99214 ==

== ENCOUNTER 2025-06-28 08:05 | Outpatient (CLI) | payer OTHER, SELFPAY ==
--- NOTE | 2025-06-28 08:10 | NMCV_ITS ---
NM adryan perf SPECT r/s* [id number] Jean Pierre Recinos Age: 69 Gender: M : 1955 Exam Date: 06/28/2025 09:04 Ordering Phys: Suraj Partida M.D ([email or web address]) Technologist: LUPIS Olvera Exam Location: [facility] Indications: cp STRESS TEST [facility] IMAGE PROTOCOL Rest/Stress 1 Lexiscan Day Radiopharmaceutical Dose (mCi) Administration Site Administered by Rest: Tc-99m 10.6 IV LUPIS Olvera Sestamibi Stress:Tc-99m 32.8 IV LUPIS Stewart Sestamibi Rest: 28-Jun-2025 60 Discovery 630 Stress: 28-Jun-2025 30 Discovery 630 0.4mg Lexiscan. Supine position only as patient was unable to lay prone. SPECT RESULTS Technical Quality: Good Raw Data Analysis: Normal Image Corrections: No attenuation or motion correction applied Summed Stress Score: 17 Summed Rest Score: 9 Summed Difference Score: 8 PERFUSION FINDINGS There is a large area of absent tracer counts in the inferoseptal, inferior and inferolateral triplett with a small amount of reversibility. FUNCTIONAL RESULTS (calculated via Gated SPECT) Stress Image LV EF (%): 53 Stress EDV (mL):173 TID: 1.08 Stress ESV (mL):81 FUNCTIONAL FINDINGS: Unable to assess wall motion in the inferoseptal, inferior and inferolateral triplett due to abscense of tracer counts. Global left ventricular function is in the low normal range with an EFof 53%. IMPRESSIONS 1. 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 2. Global left ventricular function is in the low normal range with an EFof 53%. Cooper Rea MD, FACC (Electronically Signed) Final Date: 28 June 2025 10:54 S
--- NOTE | 2025-06-28 08:10 | ECG_ITS ---
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 Interpretive Statements Procedure: A total of 0.4 mg of Lexiscan was infused over 20 seconds. The stress phase was continued for a total of 5 minutes. Sestamibi was injected 20 seconds after the Lexiscan infusion. Data: Baseline blood pressure 159/102 with a heart rate of 81 bpm. After injection of Lexiscan the blood pressure gradually decreased to 100 iqh722/97 and the heart rate increased to 96 bpm. At the end of recovery the patient's blood pressure was 148/96 with a heart rate of 93 bpm. Resting EKG showed normal sinus rhythm with intraventricular conduction delay, inferior myocardial infarction and possible old anterior myocardial infarction. Frequent PVCs during stress test. No ST changes to suggest ischemia during stress test. Conclusion: 1. Stress EKG negative for ischemia. 2. No Lexiscan induced chest pain. Frequent premature ventricular contractions during stress test. 3. Normal blood pressure and heart rate response. 4. Nuclear myocardial perfusion scan pending; see separate report. Electronically Signed On 06-28-2025 11:49:44 CDT by Cooper Rea M.D. [email or web address]
[2025-06-28 08:12] VITALS: BMI 22.5
[2025-06-28 09:47] VITALS: BP 145/97; PULSE 72
== END 2025-06-28 08:06 | disposition home or self-care (01) ==
PROVIDERS: PCP Family Medicine; Visit Provider Internal Medicine
DX: R07.9 Chest pain, unspecified (principal); R06.02 Shortness of breath; I21.19 ST elevation (STEMI) myocardial infarction involving other coronary artery of inferior wall
CPT/HCPCS: 36415; 78452; 93017; 96374; A9500; J2785

== ENCOUNTER 2025-07-26 11:33 | Outpatient (CLI) | payer OTHER, SELFPAY ==
--- NOTE | 2025-07-26 12:00 | CTR_ITS ---
PROCEDURE INFORMATION: Exam: CTA Abdominal Aorta and Bilateral Lower Extremities (Run-off) With Contrast Exam date and time: 07/26/2025 12:19 PM Age: 69 years old Clinical indication: Other: Claudication; Prior surgery; Surgery date: 6+ months; Surgery type: Left leg vessel cleaned out ; Additional info: Lifestyle-limiting claudication TECHNIQUE: Imaging protocol: Computed tomographic angiography of the of the abdominal aorta, pelvis and bilateral lower extremities with contrast. 3D rendering (Not supervised by radiologist): MIP and/or 3D reconstructed images were created by the technologist. Radiation optimization: All CT scans at this facility use at least one of these dose optimization techniques: automated exposure control; mA and/or kV adjustment per patient size (includes targeted exams where dose is matched to clinical indication); or iterative reconstruction. Contrast material: OMNI 350; Contrast volume: 100 ml; Contrast route: INTRAVENOUS (IV); COMPARISON: MR knee LT wo con* [id number] 07/28/2023 7:23 AM RADIATION DOSE METRICS: Total DLP (mGy-cm): 1455.96 FINDINGS: Aorta: There is no aortic dissection. There is no aortic aneurysm. Celiac and mesenteric arteries: Patent origins of the celiac, diseased origin of the SMA which is patent and patent but diseased origin of the GENARO. Renal arteries: Diseased but patent origins of the renal arteries. Right iliac arteries: Severe disease of the origin of the common iliac artery, there is non flow limiting focal dissection in the proximal portion of the right common iliac artery. Severe disease of the origin of the right internal iliac artery . Diseased right external iliac artery which measures up to 10.1 mm with associated thrombus causing approximately 50% luminal narrowing in its midportion. Right femoral/popliteal arteries: Severely diseased right common femoral artery with calcification in its back wall 40% luminal narrowing. Severe disease of the origin of the SFA, the SFA and popliteal arteries. Right infrapopliteal arteries: Three-vessel runoff via diseased right infrapopliteal vessels, the anterior tibial artery is diseased with multilevel calcifications causing multilevel stenoses. Left iliac arteries: Severe disease of the left common iliac artery with associated calcification and intraluminal thrombus. Stenotic origin of the left internal iliac artery with poststenotic dilatation. The left external iliac artery is diseased with presence of intraluminal thrombus causing as much as 50% luminal narrowing. Left femoral/popliteal arteries: Occlusion of the proximal common femoral artery with distal reconstitution of a diseased SFA and profunda. Severe disease of the origin of the SFA. Severe disease of the SFA and popliteal arteries. Left infrapopliteal arteries: There is one-vessel runoff via the left posterior tibial artery, the anterior tibial and peroneal arteries occlude in the middle 3rd of the leg. Other arteries: There is atherosclerotic disease. Veins: Thrombus within the splenic vein. Lungs: The Lung bases are unremarkable. Liver: The liver is unremarkable. Gallbladder and biliary ducts: No intrahepatic or extrahepatic biliary ductal dilatation. The gallbladder is unremarkable with no radioopaque stone. Pancreas: Pancreas is unremarkable. No ductal dilation or peripancreatic inflammation. Spleen: The spleen is unremarkable. Adrenal glands: Adrenal glands are unremarkable. Kidneys and ureters: No hydronephrosis, hydroureter or nephrolithiasis. Lobulated 4.8 cm right renal cyst is present, as well as other subcentimeter hypodensities which are too small to characterize. There is thickening of the triplett of both ureters with enhancement of the urothelium suggesting ascending infection. Stomach and bowel: Stomach is moderately distended. Small hiatal hernia. Small and large bowel are normal in caliber without evidence of obstruction. Extensive amount of feces in the entire colon with marked distension of the right colon with feces up to 9 cm indicating constipation. Appendix: No evidence of appendicitis. Urinary bladder: Bladder is distended with focal areas of wall thickening in the lateral aspects of the bladder, there is also apparent wall thickening in the posterior wall of the bladder this may be due to indentation by the prostate however, underlying lesion can not be excluded recommend urology consult and direct visualization as indicated. Reproductive: The prostate is enlarged and indents the base of the bladder. Intraperitoneal space: No free intraperitoneal air. No significant fluid collection. Lymph nodes: No pathologically enlarged lymph nodes (by short axis size criteria). Bones/joints: No acute osseous abnormality. There is degenerative disease of the spine. diseased but patent origin of the right common iliac with moderate amount of thrombus and area of non flow limiting focal dissection in the common iliac artery. Soft tissues: There is a small fat containing umbilical hernia. CT/CT angio abd aorta runof [id number] IMPRESSION: 1. On the right, severe inflow disease with non flow limiting focal dissection in the proximal portion of the common iliac artery. Severely diseased internal and external iliac arteries. Severely diseased tibioperoneal trunk. Three-vessel runoff to the foot via diseased vessels, the anterior tibial artery is moderately diseased with multilevel stenoses. 2. On the left, severe inflow disease, severe outflow disease of the occlusion of the left common femoral artery and distal reconstitution of the diseased SFA. Moderately diseased tibial peroneal trunk and proximal anterior tibial artery. There is three-vessel runoff to the foot 3. Thrombus in the splenic vein, this can be better evaluated on the portal venous phase of CT of the abdomen and pelvis. 4. Focal areas of thickening in the wall of the bladder and possible thickening in the posterior wall versus indentation by the prostate, recommend urology consult and direct visualization as indicated. 5. Possible ascending urinary tract infection, the triplett of the ureters are thickened and enhance. 6. Constipation.
[2025-07-26] MEDS: iohexol 350 mg/mL 500 mL Btl (per mL) IV (12:05)
[2025-07-26 12:16] LABS: Blood Urea Nitrogen 16 mg/dL (8-23)
== END 2025-07-26 11:34 | disposition home or self-care (01) ==
LOC: RAD 11:34
PROVIDERS: PCP Family Medicine; Visit Provider Internal Medicine
DX: M79.604 Pain in right leg (principal); M79.605 Pain in left leg; I73.9 Peripheral vascular disease, unspecified; R93.89 Abnormal findings on diagnostic imaging of other specified body structures; I82.890 Acute embolism and thrombosis of other specified veins; N32.89 Other specified disorders of bladder; K59.00 Constipation, unspecified; I74.5 Embolism and thrombosis of iliac artery; I70.8 Atherosclerosis of other arteries; N28.1 Cyst of kidney, acquired; N28.89 Other specified disorders of kidney and ureter; M47.9 Spondylosis, unspecified; N40.0 Benign prostatic hyperplasia without lower urinary tract symptoms; K42.9 Umbilical hernia without obstruction or gangrene
CPT/HCPCS: 75635; 82565; 84520

== ENCOUNTER 2025-09-09 07:19 | Outpatient (CLI) | payer OTHER, SELFPAY ==
[2025-09-09] VITALS (22 sets, daily range): BP systolic 116–158; BP diastolic 51–84; PULSE 71–85; RESP 15–40; TEMP 36.9; O2SAT 96–100; BMI 22.5
--- NOTE | 2025-09-09 07:44 | XACV_ITS ---
Ht: 178 cm Wt: 71 kg BSA: 1.88 m2 Any Known Allergies: Other Gender: Male : 1955 Exam Type: Invasive Peripheral Vascular Procedure(s): Procedure Description: Peripheral Cath Diagnostic Procedure Procedure Description: Abdominal aortic angiography Procedure Description: Iliac arterial aortic angiography Procedure Description: Lower extremities' angiography Exam Priority: Routine Abdominal Diagnostic Findings Distal abdominal aorta is patent. Lower Extremity Diagnostic Findings INDICATION: Severe lifestyle limiting claudication. Left lower extremity findings: Left common iliac artery has mild to moderate disease. Left external iliac artery is patent. Left internal iliac artery is patent. Left common femoral artery is totally occluded in proximal segment with reconstitution of distal segment via collaterals. SFA has moderate calcified diffuse disease. Popliteal artery is patent. Below the knee has single-vessel runoff with patent posterior tibial artery. Anterior tibial artery is occluded. Peroneal artery has diffuse disease but patent. . Right lower extremity findings:Right common iliac artery has 70-80% stenosis. External iliac artery is patent. Right common femoral artery has distal severe 90% stenosis. Proximal SFA has moderate to severe 70% stenosis. Profunda artery is patent. Right popliteal artery is patent. Below the knee, diffuse disease of infrapopliteal arteries.. Conclusions Severe bilateral peripheral artery disease. Recommendations We will refer to vascular surgery for revascularization options discussion. Will benefit from bypass surgery. Start Xaralto 20mg daily as CTA mentioned splenic vein thrombus. May need dedicated study in future to better assess that. Hemodynamic Data Phase:Rest AO : 168.0 / 91.0 ( 121.0 ) @ 9:24:00 AM 148.0 / 86.0 ( 113.0 ) @ 9:28:00 AM 151.0 / 73.0 ( 104.0 ) @ 9:32:00 AM 132.0 / 64.0 ( 94.0 ) @ 9:33:00 AM Access Site Site: Right Femoral artery Sheath Size: 6 Fr Hemost... Method: Mynx Hemost... Success: Successful Procedure Details Findings Procedure Consent Obtained. Pre-Procedure Time Out. Does the consent match the physician's order: Yes. Identified patient by full name and date of as verbalized by the patient/guarantor. Accurate & Complete Informed Consent: Yes. Inpatient/Outpatient History & Physical on Chart: Yes. If H&P is completed, is and addenduem needed: No; If yes, is the addendum complete: N/A. Visualize and Verify Site with Patient/Guarantor: N/A. Relevant Radiology Images available: Yes. Pre-op teaching completed and patient verbalized understanding. The risks, benefits, and alternatives of sedation and/or procedure were discussed by physician. The patient agrees to continue. Procedure started. Correct patient, site and procedure confirmed by cath team. PERRLA. Strong, equal hand shank pinner bilaterally. Lungs clear x 5 lobes. IV Site on Arrival: 20 gauge in the right anticubital. IV Fluids: 0.9% NaCl at KVO. 0 mL infused prior to laborer [employer]. Oxygen started at 2liters/min via nasal canula. Pre Procedural Pulses: bilateral dorsalis pedis was Doppled. Pre Procedural Pulses: bilateral posterior tibial was Doppled. Pre Procedural Pulses: bilateral radial was 3+. bilateral groins was prepped with chloroprep then draped in the usual sterile fashion. Baseline sample Acquired. HR: 82 BPM. Physician arrived. Physician scrubbed in. Immediate Pre-Procedure Time Out. Correct Patient: Yes; Correct Procedure: Yes; Correct Site: Yes; Correct Patient Position: Yes; Correct Supplies: Yes; Dried Flammable Prep: Yes; Blood Products Available: N/A;. Lidocaine 1% infiltrated to the left groin. Ultrasound being used to obtain arterial access. Lidocaine 1% infiltrated to the right groin. Arterial access obtained with micropuncture set. A 5FrFr UF catheter in over wire. Abdominal aortogram performed in AP @ 10 mL/sec for a total of 30 mL. Glidewire inserted. Catheter repositioned OTW to the left iliac artery. Left external iliac selected and arteriogram with runoff performed @ 10 mL/sec for a total of 30 mL. DSA performed of the left iliac artery. Glidewire inserted. Catheter positioned above the bifurcation of the iliacs. DSA performed. Catheter removed over the glide wire. DSA performed of the right iliac artery. A Right femoral angiogram was performed to determine safe placement of closure device. A Mynx was successful obtaining hemostatsis at the Right Femoral artery insertion site. Post Procedure: Pulses reassessed and unchanged. PERRLA. Strong, equal hand shank pinner bilaterally. No VTE prophylaxis required. Medication's Wasted: Other = Versed 1 mg. Total IV fluids: 30 mL. Post-op diagnosis: PAD. Complications: None. Estimated blood loss: 5mL-10mL. Responsiveness - Normal response to verbal stimuli; alert and oriented, PERRLA. Airway - Unaffected, no intervention required; spontaneous ventilation. Circulation: W/N/L, pulses unchanged. Nausea/Vomiting: No. Procedure completed. Patient transferred by bed to 1st floor. Vital chart was stopped. Procedure Medications Start: 9:07 AM Stop: 9:07 AM Medication: Versed Amount: 1 mg Route: I.V. Start: 9:07 AM Stop: 9:07 AM Medication: Fentanyl Amount: 50 mcg Route: I.V. Start: 9:11 AM Stop: 9:11 AM Medication: Versed Amount: 1 mg Route: I.V. Start: 9:12 AM Stop: 9:12 AM Medication: Fentanyl Amount: 25 mcg Route: I.V. Start: 9:28 AM Stop: 9:28 AM Medication: Fentanyl Amount: 25 mcg Route: I.V. Start: 9:30 AM Stop: 9:30 AM Medication: Versed Amount: 1 mg Route: I.V. I, the attending physician, have reviewed and verified all procedure medications. Yes, all medications given per verbal order History/Risk Factors Hypertension: No Dyslipidemia: Yes Peripheral Arterial Disease (PAD): Yes Obesity: No Renal Disease: No Tobacco Use: Former Prior Interventions PCI: Yes CABG: No Valve Surgery: No Report Signatures Finalized by Suraj Partida MD on 09/17/2025 11:20 AM
[2025-09-09 07:54] LABS: Hematocrit 40.9 % (37-53); Hemoglobin 12.70 g/dL (11.27-16.99); Mean Corpuscular HGB Conc 31.1 g/dL (30-55); Mean Corpuscular Hemoglobin 26.8 pg (27-33); Mean Corpuscular Volume 86.3 fl (82-101); Nucleated Red Blood Cells % 0 %; Platelet Count 332 10^3/cmm (157-399); Red Blood Count 4.74 10^6/uL (3.85-5.65); White Blood Count 7.76 10^3/uL (3.29-11.43)
[2025-09-09 08:12] LABS: Anion Gap 12.4 (5-19); Blood Urea Nitrogen 19 mg/dL (8-23); Calcium 9.6 mg/dL (8.5-10.5); Carbon Dioxide 26 mmol/L (22-29); Chloride 108 mmol/L (98-107); Glucose 100 mg/dL (65-115); Osmolality Calculated 296 mOsm/kg (285-295); Potassium 4.4 mmol/L (3.5-5.1); Sodium 142 mmol/L (136-145)
--- NOTE | 2025-09-09 09:01 | W.PM.OPSFHP ---
Same Day Surgery H&P Indication for Procedure/HPI DATE OF PROCEDURE: September 09, 2025 CHIEF COMPLAINT/INDICATIONFOR SURGICAL PROCEDURE: Severe lifestyle limiting claudication PREOP DIAGNOSIS: Severe lifestyle limiting claudication PLANNED PROCEDURE: Operation Date: 09/09/25 08:30 Proposed Procedures p Peripheral Diagnostic - Periph Angio Bilat(Bilateral) - Suraj Partida M.D Possible percutaneous peripheral intervention 69-year-old man with past medical history of coronary artery disease, peripheral artery disease who has been having severe lifestyle-limiting claudication symptoms. Plan for peripheral angiogram. CTA showed severe bilateral peripheral artery disease. Medications/Allergies* Home Medications ?Medication ?Instructions ?Recorded ?Confirmed ?Type rabeprazole 20 mg tablet,delayed 20 mg PO DAILY 07/05/23 09/06/25 History release Vitamin B Complex 1 tab PO DAILY 09/13/23 09/06/25 History coenzyme Q10 200 mg capsule 200 mg PO DAILY 09/13/23 09/06/25 History magnesium L-threonate 48 mg 2,000 mg PO DAILY 09/13/23 09/06/25 History magnesium (667 mg) capsule vitamin K2 100 mcg capsule 200 mcg PO DAILY 09/13/23 09/06/25 History cholecalciferol (vitamin D3) 250 2,000 unit PO DAILY 10/06/23 09/06/25 History mcg (10,000 unit) capsule soybean, fermented 50 mg capsule See Rx Instructions PO .COMPLEX 10/06/23 09/06/25 History (Nattokinase) clonidine HCl 0.3 mg tablet 0.3 mg PO DAILY 12/05/23 09/06/25 History mirtazapine 30 mg tablet 60 mg PO BEDTIME 09/10/24 09/06/25 History tamsulosin 0.4 mg capsule (Flomax) 0.4 mg PO BID 09/10/24 09/06/25 History bupropion HCl 150 mg tablet,12 hr 150 mg PO BID 05/02/25 09/06/25 History sustained-release Allergies/Adverse Reactions Allergy/AdvReac Type Severity Reaction Status Date / Time amoxicillin Allergy Intermediate Unknown Verified 06/17/25 14:11 NSAIDS (Non-Steroidal Allergy Intermediate ADR-Heartbu Verified 06/17/25 14:11 Anti-Inflamma rn Aoszruo-SVU-CoF Reductase Allergy Intermediate ADR-Heartbu Verified 06/17/25 14:11 Inhibitor rn Current Medications: Generic Name Dose Route Start Last Admin Trade Name Nelly PRN Reason Stop Dose Admin Sodium Chloride 1,000 mls @ 50 mls/hr 09/09/25 07:44 09/09/25 08:15 Sodium Chloride 0.9% IV 09/10/25 03:43 Not Given .Q20H ONE Pertinent History/Comorbid Conditions* Social History Smoking and tobacco/nicotine status: former use of tobacco/nicotine Alcohol intake: current Alcohol intake frequency: few times a month Pertinent Exam Findings alert, oriented x 3, clear to auscultation bilaterally and regular rate & rhythm Difficult to palpate pulses bilateral Conscious Sedation Assessment PATIENT ASSESSED PRIOR TO SEDATION, WITH NO CHANGE NOTED: Yes AIRWAY EVAL/ANESTHESIA PLAN: normal airway, ASA III, Local Anesthesia, Risks, benefits & alternatives of sedation and/or procedure discussed and Patient agrees to continue as planned ADDITIONAL INFORMATION: Moderate sedation Recommendations Risks and benefits of procedure reviewed Surgery/Procedure today (Peripheral angiogram with possible percutaneous intervention) Coding Level of Care Code Acute Code for Afia Fritz
--- NOTE | 2025-09-09 10:37 | PC.NURSE ---
see vitals in chart
--- NOTE | 2025-09-09 11:06 | PC.NURSE ---
Per [facility] support- Clinic will call patient with PCP f/u appointment.
--- NOTE | 2025-09-09 11:36 | PM.PROC ---
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 Right common femoral artery has severe 90 to 95% stenosis. Right external iliac artery also has 80% stenosis. We will refer to vascular surgery for revascularization options discussion. Will benefit from bypass surgery. Start Xaralto 20mg daily as CTA mentioned splenic vein thrombus. May need dedicated study in future to better assess that. Performing Provider: Suraj Partida Complications: None Condition: stable Disposition: same day Coding Level of Care Code Acute Code for Chg Fwd
--- NOTE | 2025-09-09 12:03 | PC.NURSE ---
Alexa with [facility] clinic called to schedule PCP appointment.
== END 2025-09-09 15:53 | disposition home or self-care (01) ==
LOC: CCL 07:21 → CSU 09:52
PROVIDERS: PCP Family Medicine; Visit Provider Internal Medicine
DX: I70.213 Atherosclerosis of native arteries of extremities with intermittent claudication, bilateral legs (principal); I70.92 Chronic total occlusion of artery of the extremities; E78.5 Hyperlipidemia, unspecified; Z87.891 Personal history of nicotine dependence; I25.10 Atherosclerotic heart disease of native coronary artery without angina pectoris
CPT/HCPCS: 36415; 75625; 75716; 80048; 85025; 99152; 99153; C1760; C1769; C1887; C1894; G0269; J1644; J2250; J3010; J7030; J9999; Q0163; Q9967

== ENCOUNTER → 2025-09-13 08:43 | Outpatient (BNVA) | payer OTHER, SELFPAY | PROVIDERS: PCP Family Medicine; Visit Provider Student in an Organized Health Care Education/Training Program | DX: M16.11 Unilateral primary osteoarthritis, right hip (principal); Z71.89 Other specified counseling | CPT/HCPCS: 20610; 77002; J3301; J9999 ==

== ENCOUNTER 2025-09-30 08:42 | Outpatient (CLI) | payer OTHER, SELFPAY | END 2025-09-30 08:43 | disposition home or self-care (01) | LOC: LAB 08:43 | PROVIDERS: PCP Family Medicine; Visit Provider Nurse Practitioner Family | DX: R97.20 Elevated prostate specific antigen [PSA] (principal); E29.1 Testicular hypofunction | CPT/HCPCS: 36415; 84153; 84403 ==

== ENCOUNTER → 2025-10-01 14:18 | Outpatient (BNVA) | payer OTHER, SELFPAY | PROVIDERS: PCP Family Medicine; Visit Provider Nurse Practitioner Family | DX: I73.9 Peripheral vascular disease, unspecified (principal); Z51.89 Encounter for other specified aftercare; I25.10 Atherosclerotic heart disease of native coronary artery without angina pectoris; I82.890 Acute embolism and thrombosis of other specified veins; Z87.891 Personal history of nicotine dependence | CPT/HCPCS: 99214 ==